=== PATIENT | female | born 1955 | race Caucasian/White ===

== ENCOUNTER 2016-11-15 12:03 | Emergency (ER) | payer MEDICAID ==
[~2016-11-15] VITALS: Ht 165.1 cm; Wt 69.0 kg
[2016-11-15 12:06] VITALS: Ht 165.1 cm; Wt 69.0 kg
[2016-11-15] MEDS ORDERED: PRED20TA PO (13:48)
[2016-11-15] MEDS ORDERED: HYDR-906 PO (13:48)
[2016-11-15] MEDS ORDERED: ACYC800T57 PO (13:48)
[2016-11-15] MEDS ORDERED: FLUORESCEIN STRIP LEFT EYE ONE (14:00)
[2016-11-15] MEDS ORDERED: TETRACAINE 0.5% 4 ML OPH LEFT EYE ONE (14:00)
--- NOTE | 2016-11-15 14:27 | ERD ---
ER Documentation Chief Complaint Date/Time DATE: 11/15/16 TIME: 14:23 Chief Complaint HEADACHE S/P HIT HER HEAD ON TREE LAST WEDNESDAY HPI 61-year-old female coming in complaining of headache and skin pain. Patient ran into [facility] 1 week ago and states she has had pain on top of her head that has intensified. She denies any numbness or tingling. Denies any vomiting. Denies any dizziness. States that the scalp feels painful when she touches it. Has never had this before. Has not taken medications for her symptoms. ROS All systems reviewed and are negative except as per history of present illness. Medications Home Meds Active Scripts Acyclovir* (Zovirax*) 800 Mg Tablet, 800 MG PO 5 TIMES DAILY for 7 Days, TAB Prov:CALLI VAUGHN PA-C 11/15/16 Prednisone* (Prednisone*) 20 Mg Tab, 40 MG PO DAILY for 4 Days, TAB Prov:CALLI VAUGHN PA-C 11/15/16 Hydrocodone/Acetaminophen ([place] 5-325 Tablet) 1 Each Tablet, 1 TAB PO Q6H Y for PAIN, #7 TAB Prov:CALLI VAUGHN PA-C 11/15/16 PMhx/Soc Medical and Surgical Hx: pt denies Medical Hx, pt denies Surgical Hx Hx Alcohol Use: No Hx Substance Use: No Hx Tobacco Use: No Smoking Status: Never smoker Physical Exam Vitals Vital Signs Date Time Temp Pulse Resp B/P Pulse Ox O2 Delivery O2 Flow Rate FiO2 11/15/16 12:06 98.2 88 18 162/77 98 Physical Exam GENERAL: The patient is well-appearing, well-nourished, in no acute distress HEENT: Atraumatic. Conjunctivae are pink. Pupils equal, round, and reactive to light. There is no scleral icterus. Tympanic membranes clear bilaterally. Oropharynx clear. No nystagmus or photophobia. CHEST: Clear to auscultation bilaterally. There are no rales, wheezes or rhonchi. HEART: Regular rate and rhythm. No murmurs, clicks, rubs or gallops. No S3 or S4. NEUROLOGIC: Alert and oriented. Cranial nerves II through XII intact. Motor strength in all 4 extremities with 5 out of 5 strength. Sensation grossly intact. Normal speech and gait. Babinski negative. DTR 2+ throughout. SKIN: Erythematous group vesicles in left scalp extending to left eyebrow. No purulence. No fluctuance. Results 24 hrs Current Medications Medications (Trade) Dose Ordered Sig/Andrew Route PRN Reason Start Time Stop Time Status Last Admin Dose Admin Fluorescein Sodium (Sebdy-A-Iehny) 1 strip ONCE ONCE LEFT EYE 11/15/16 14:00 11/15/16 14:01 DC Tetracaine HCl (Tetracaine 0.5% Steri-Unit Romana) 1 drop ONCE ONCE LEFT EYE 11/15/16 14:00 11/15/16 14:01 DC Procedures/MDM ER course: Fluorescein and tetracaine used to evaluate sclera. No signs of dendritic lesions seen. MDM: 61-year-old female complaining of pain to left scalp. I have low suspicion for neuro intracranial hemorrhage or mass-effect. I have low suspicion for neurodeficit. Patient's exam is concerning for shingles. There are grouped vesicles seen on the skin indicative of a shingles outbreak. I have low suspicion for ocular involvement. Patient's eye exam is non- concerning and no dendritic lesions are seen. Departure Diagnosis: Primary Impression: Shingles Condition: Stable Patient Instructions: Shingles (Herpes Zoster) Referrals: [facility] YOU HAVE RECEIVED A MEDICAL SCREENING EXAM AND THE RESULTS INDICATE THAT YOU DO NOT HAVE A CONDITION THAT REQUIRES URGENT TREATMENT IN THE EMERGENCY DEPARTMENT. FURTHER EVALUATION AND TREATMENT OF YOUR CONDITION CAN WAIT UNTIL YOU ARE SEEN IN YOUR DOCTORS OFFICE WITHIN THE NEXT 1-2 DAYS. IT IS YOUR RESPONSIBILITY TO MAKE AN APPOINTMENT FOR FOLOW-UP CARE. IF YOU HAVE A PRIMARY DOCTOR --you should call your primary doctor and schedule an appointment IF YOU DO NOT HAVE A PRIMARY DOCTOR YOU CAN CALL OUR PHYSICIAN REFERRAL HOTLINE AT IF YOU CAN NOT AFFORD TO SEE A PHYSICIAN YOU CAN CHOSE FROM THE FOLLOWING [facility] [address] [facility] [address] [facility] [address] [facility] [address] [facility] [address] [facility]. [facility] [address] Additional Instructions: FOLLOW UP WITH YOUR PRIMARY CARE PHYSICIAN TOMORROW.Return to this facility if you are not improving as expected. CALLI VAUGHN PA-C Nov 15, 2016 14:27
[2016-11-15 14:35] VITALS: BP 137/60; PULSE 78; RESP 18; TEMP 98.1
== END 2016-11-15 14:33 | disposition home or self-care (01) ==
LOC: FTE 12:03
DX: B02.9 Zoster without complications (principal)
CPT/HCPCS: Z7502; Z7610; 99284